=== PATIENT | female | born 1975 | race Caucasian/White ===

== ENCOUNTER → 2016-11-26 | Outpatient (CLI) | payer OTHER ==
[~2016-11-26] MED LIST: PANT20 PO; VORT10TA PO
[2016-11-26 09:07] LABS: AUTOMATED NEUTROPHIL # 2.4 TH/MM3 (1.8-7.7); BASOPHIL # 0.1 TH/MM3 (0-0.2); BASOPHIL % 2.1 % (0.0-2.0); EOSINOPHIL # 0.1 TH/MM3 (0-0.4); EOSINOPHIL % 2.3 % (0.0-4.0); HEMO FLAGS DIFF FINAL; LYMPH % 36.1 % (9.0-44.0); LYMPHOCYTE # 1.7 TH/MM3 (1.0-4.8); MEAN CELL VOLUME 84.1 FL (80.0-100.0); MEAN CORPUSCULAR HEMOGLOBIN 27.2 PG (27.0-34.0); MEAN CORPUSCULAR HGB CONC 32.4 % (32.0-36.0); NEUT % 52.5 % (16.0-70.0); PLATELET COUNT 280 TH/MM3 (150-450); RED BLOOD COUNT 4.16 MIL/MM3 (4.00-5.30); WHITE BLOOD COUNT 4.6 TH/MM3 (4.0-11.0)
[2016-11-26 10:09] LABS: ALKALINE PHOSPHATASE 66 U/L (45-117); ALT (GPT) 33 U/L (10-53); ANION GAP 6 MEQ/L (5-15); AST (GOT) 16 U/L (15-37); BLOOD UREA NITROGEN 12 MG/DL (7-18); CHLORIDE 105 MEQ/L (98-107); FERRITIN 4 NG/ML (8-252); FREE T3 2.07 PG/ML (2.18-3.98); FREE T4 0.91 NG/DL (0.76-1.46); GLOMERULAR FILTRATION RATE 105 ML/MIN (>89); GLUCOSE,FASTING 86 MG/DL (74-99); HDL CHOLESTEROL 71.7 MG/DL (40.0-60.0); LDL CHOLESTEROL 68 MG/DL (0-99); MAGNESIUM 2.1 MG/DL (1.5-2.5); POTASSIUM 4.3 MEQ/L (3.5-5.1); SODIUM (NA) 141 MEQ/L (136-145); TOTAL BILIRUBIN ADULT 0.3 MG/DL (0.2-1.0); TRANSFERRIN IRON PROFILE 249 MG/DL (200-360)
== END ==
LOC: CLAB 08:40
PROVIDERS: ATTEND Surgery
DX: Z98.84 Bariatric surgery status (principal)
CPT/HCPCS: 36415; 80053; 80061; 82306; 82607; 82728; 82746; 83540; 83550; 83735; 83970; 84100; 84439; 84443; 84481; 84590; 85025

== ENCOUNTER → 2016-12-10 | Outpatient (CLI) | payer OTHER | LOC: PLAB 10:58 | PROVIDERS: ATTEND Family Medicine | DX: Z01.411 Encounter for gynecological examination (general) (routine) with abnormal findings (principal) ==

== ENCOUNTER → 2016-12-22 | Outpatient (CLI) | payer OTHER | LOC: PLAB 14:23 | PROVIDERS: ATTEND Obstetrics & Gynecology | DX: Z32.01 Encounter for pregnancy test, result positive (principal) | CPT/HCPCS: 84144; 84703 ==

== ENCOUNTER → 2016-12-30 | Outpatient (CLI) | payer OTHER ==
[2016-12-30 10:19] LABS: BETA HCG QUANT 27779 MIU/ML (0-5)
== END ==
LOC: PLAB 06:59
PROVIDERS: ATTEND Obstetrics & Gynecology
DX: Z32.01 Encounter for pregnancy test, result positive (principal)
CPT/HCPCS: 84702

== ENCOUNTER → 2017-01-19 | Outpatient (CLI) | payer OTHER ==
[2017-01-19 09:31] LABS: AUTOMATED NEUTROPHIL # 5.4 TH/MM3 (1.8-7.7); BASOPHIL # 0.1 TH/MM3 (0-0.2); BASOPHIL % 0.9 % (0.0-2.0); EOSINOPHIL # 0.1 TH/MM3 (0-0.4); HEMO FLAGS DIFF FINAL; LYMPH % 23.8 % (9.0-44.0); LYMPHOCYTE # 1.8 TH/MM3 (1.0-4.8); MEAN CORPUSCULAR HEMOGLOBIN 27.6 PG (27.0-34.0); MEAN CORPUSCULAR HGB CONC 32.5 % (32.0-36.0); MONO % 4.3 % (0.0-8.0); PLATELET COUNT 261 TH/MM3 (150-450); RED BLOOD COUNT 3.88 MIL/MM3 (4.00-5.30); RED CELL DISTRIBUTION WIDTH 15.7 % (11.6-17.2); WHITE BLOOD COUNT 7.7 TH/MM3 (4.0-11.0)
[2017-01-19 09:49] LABS: RUBELLA IGG ANTIBODY 115.7 IU/mL (10.0-500.0); RUBELLA STATUS IMMUNE (IMMUNE)
[2017-01-19 10:16] LABS: RAPID PLASMA REAGIN SCREEN NON-REACTIVE (NON-REACTVE)
== END ==
LOC: PLAB 06:38
PROVIDERS: ATTEND Obstetrics & Gynecology
DX: Z31.438 Encounter for other genetic testing of female for procreative management (principal); Z32.01 Encounter for pregnancy test, result positive; A49.9 Bacterial infection, unspecified
CPT/HCPCS: 85025; 86592; 86703; 86762; 86850; 86900; 86901; 87086; 87340

== ENCOUNTER → 2017-02-16 | Outpatient (CLI) | payer OTHER | LOC: HPND 12:43 | PROVIDERS: ATTEND Obstetrics & Gynecology | DX: O09.519 Supervision of elderly primigravida, unspecified trimester (principal) | CPT/HCPCS: 36416; 76813 ==

== ENCOUNTER → 2017-03-05 | Outpatient (CLI) | payer OTHER ==
[2017-03-10 11:50] LABS: AFP SERUM 27.2 ng/mL (()); CALCULATED GESTATIONAL AGE 15.4 (())
== END ==
LOC: PLAB 07:05
PROVIDERS: ATTEND Obstetrics & Gynecology
DX: O09.519 Supervision of elderly primigravida, unspecified trimester (principal); Z32.01 Encounter for pregnancy test, result positive
CPT/HCPCS: 82105

== ENCOUNTER → 2017-03-23 | Outpatient (CLI) | payer OTHER | LOC: HPND 12:40 | PROVIDERS: ATTEND Obstetrics & Gynecology | DX: O09.522 Supervision of elderly multigravida, second trimester (principal); Z3A.18 18 weeks gestation of pregnancy | CPT/HCPCS: 76811; 76817 ==

== ENCOUNTER → 2017-04-27 | Outpatient (CLI) | payer OTHER | LOC: HPND 14:21 | PROVIDERS: ATTEND Obstetrics & Gynecology | DX: O09.522 Supervision of elderly multigravida, second trimester (principal) | CPT/HCPCS: 76816; 76817 ==

== ENCOUNTER 2017-05-05 14:11 | Observation (INO) | payer OTHER ==
[2017-05-05] VITALS (33 sets, daily range): BP systolic 95–114; BP diastolic 53–86; PULSE 71–87; RESP 15–16
[2017-05-05] MEDS ORDERED: LACTATED RINGER'S 1000 ML INJ 1,000 ML IV SCH (15:17)
[2017-05-05] MEDS ORDERED: MAGNESIUM SULFATE 40 GM PREMIX 1,000 ML ONE (15:20)
[2017-05-05] MEDS ORDERED: MAGNESIUM SULFATE 4 GM PREMIX 100 ML ONE (15:20)
[2017-05-05] MEDS ORDERED: ONDANSETRON HCL 4 MG/2 ML VIAL IV PRN (15:30)
[2017-05-05] MEDS ORDERED: CALCIUM GLUCONATE 10% 1 GM/10 ML VIAL IV PRN (15:30)
[2017-05-05] MEDS ORDERED: ACETAMINOPHEN 325 MG TAB PO PRN (15:30)
[2017-05-05] MEDS ORDERED: SODIUM CHLORIDE 0.9% FLUSH 10 ML FLUSH IV FLUSH PRN (15:30)
[2017-05-05] MEDS ORDERED: MAGNESIUM SULFATE 4 GM PREMIX 100 ML IV ONE (15:30)
[2017-05-05] MEDS ORDERED: AZITHROMYCIN 250 MG TAB PO ONE (15:30)
[2017-05-05 15:56] LABS: BACTERIA, URINE FEW /hpf; BLOOD, URINE NEG (NEG); COMMENT (UR) CULT NOT INDICATED; CULTURE IF INDICATED CULT NOT INDICATED; GLUCOSE,URINE NEG (NEG); KETONE, URINE NEG (NEG); MUCUS URINE FEW /lpf (OCC); NITRITE,URINE NEG (NEG); PH, URINE 5.5 (5.0-8.5); SQUAMOUS EPITHELIAL CELL URINE 9 /hpf (0-5); URINE COLOR YELLOW (YELLW/STRAW)
[2017-05-05 15:58] LABS: AMPHETAMINE, URINE NEG (NEG); BARBITURATES, URINE NEG (NEG); COCAINE, URINE NEG (NEG)
[2017-05-05] MEDS ORDERED: AMPICILLIN INJ 2,000 MG in SODIUM CHLORIDE 0.9% INJ 100 ML IV SCH (16:00)
[2017-05-05] MEDS ORDERED: BETAMETHASONE SOD PHOS/ACETATE SUSP 30 MG/5 ML VIAL IM SCH (16:00)
[2017-05-05] MEDS ORDERED: MAGNESIUM SULFATE 40 GM PREMIX 1,000 ML IV SCH (16:00)
--- NOTE | 2017-05-05 16:30 | PD ---
HPI Travel History International Travel<30 Days: No Contact w/Intl Traveler<30Days: No Known Affected Area: No History of Present Illness HPI This patient is a 42-year-old 1 para 0 EDC is August 24, 2017 presently at 24 weeks and 2 days she presents the chief complaint of leaking fluid over the past week. Did not notify her OB today she began having discomfort in the left upper quadrant no bleeding the baby is active her course is significant for a history of a bicornuate uterus she is unsure if there is a septum however the baby is in the smaller part which is on the left side No recent sexual intercourse history of BV and yeast she has been treated with Flagyl also a history of anemia History Past Medical History Narrative Medical No known drug allergies history of depression Obstetric History Obstetric History First Past Surgical History Narrative Surgical History of a gastric bypass and arthroscopic knee surgery Family History Narrative Family History Heart disease and diabetes Social History Alcohol Use: No Tobacco Use: No Substance Abuse: No Allergies-Medications (Allergen,Severity, Reaction): Coded Allergies: No Known Allergies (Unverified , 04/12/16) Home Meds Active Scripts Pantoprazole Sodium (Protonix)20 Mg Tab20 Mg PO DAILY 14 Days Prov:Racquel Villalba MD 04/12/16 Reported Medications Vortioxetine HBr (Brintellix)10 Mg Tab1 Tab PO DAILY 11/06/14 Review of Systems Genitourinary: Other (leaking fluid over the past week) Musculoskeletal: Other (denies any cramping or abdominal pain other than the left upper quadrant) Physical Exam Vital Signs Date Time Temp Pulse Resp B/P Pulse Ox O2 Delivery O2 Flow Rate FiO2 05/05/17 15:50 15 05/05/17 15:50 74 05/05/17 15:50 77 102/67 05/05/17 15:45 78 05/05/17 15:45 77 103/74 05/05/17 15:40 75 05/05/17 15:40 80 107/67 05/05/17 15:35 74 05/05/17 15:35 72 110/86 05/05/17 15:34 71 103/68 05/05/17 15:01 75 104/64 Narrative GENERAL: Well-nourished, well-developed patient. Alert oriented 3 and cooperative in no acute distress SKIN: Warm and dry. HEAD: Normocephalic and atraumatic. EYES: No scleral icterus. No injection or drainage. Conjunctiva are pink sclerae are clear ENT: No nasal drainage noted. Mucous membranes pink. Airway patent. NECK: Supple, trachea midline. No JVD. No adenopathy no thyroid enlargement CARDIOVASCULAR: Regular rate and rhythm without murmurs, gallops, or rubs. No tachycardia with pulse rate is 75 RESPIRATORY: Breath sounds equal bilaterally. No accessory muscle use. ABDOMEN/GI: Abdomen is gravid consistent with 24 weeks soft nontender no epigastric or right upper quadrant tenderness no rebound tenderness Gravid to [-] weeks size 24 Fundal Height: [-] GENITOURINARY: Speculum exam demonstrates gross clear fluid in the vaginal vault amnisure is positive bimanual exam is deferred however on ultrasound the cervical length is measuring 2.5-2.7 cm and there is no funneling at the internal os External Genitalia: intact and normal in appearance BUS glands: [-] Cervix: [-] Dilatation: [-] Effacement: [-] Station: [-] Presentation: [-] Membranes: ruptured] Uterine Contractions: [-]0 FHT's: Category: [-] 1 Baseline: [-]140 Reactive: [-]+ Variability: [-] + Decels: [-] 0 EXTREMITIES: No cyanosis or edema. 2+ reflexes BACK: Nontender without obvious deformity. No CVA tenderness. NEUROLOGICAL: Awake and alert. Motor and sensory grossly within normal limits. Five out of 5 muscle strength in all muscle groups. Normal speech. Data Data Vital Signs Reviewed: Yes (blood pressure 104/64 pulse is 75 temperatures 98.5) Orders Vital Signs (Adult) .ON ADMISSION (05/05/17 15:10) ^ Labor Status (05/05/17 15:10) Pamg-1 Test .ONCE (05/05/17 15:10) Us Ob Limited (05/05/17 ) Place In Observation (05/05/17 ) Code Status (05/05/17 15:17) Vital Signs (Adult) Q4H (05/05/17 15:17) Activity Bed Rest (05/05/17 15:17) Intake + Output JONO.QSHIFT (05/05/17 15:17) Heart CONTINUOUS (05/05/17 15:17) Urinary Catheter Management JONO.Q8H (05/05/17 15:17) Diet Npo (05/05/17 Dinner) Lactated Ringer's 1000 Ml Inj (Lr 1000 M (05/05/17 15:17) Sodium Chloride 0.9% Flush (Ns Flush) (05/05/17 15:30) Sodium Chloride 0.9% Flush (Ns Flush) (05/05/17 21:00) Betamethasone Inj (Celestone Soluspan In (05/05/17 16:00) Calcium Gluconate Inj (Calcium Gluconate (05/05/17 15:30) Acetaminophen (Tylenol) (05/05/17 15:30) Ondansetron Inj (Zofran Inj) (05/05/17 15:30) Urinalysis - C+S If Indicated (05/05/17 15:17) Cbc No Diff, Includes Plts (05/05/17 15:17) Comprehensive Metabolic Panel (05/05/17 15:17) Ob/Psych Drug Screen, Urine (05/05/17 15:17) Magnesium Sulfate 40 Gm Premix (Magnesiu (05/05/17 16:00) Magnesium Sulfate 4 Gm Premix (Magnesium (05/05/17 15:30) Ampicillin Inj (Ampicillin Inj) (05/05/17 16:00) Magnesium Sulfate 4 Gm Premix (Magnesium (05/05/17 15:20) Magnesium Sulfate 40 Gm Premix (Magnesiu (05/05/17 15:20) Ur Bath Salts (05/05/17 14:55) Ur Heroin (05/05/17 14:55) Ur K2 Spice (05/05/17 14:55) Ur Ecstasy (05/05/17 14:55) Phencyclidine Urine (Pcp) (05/05/17 14:55) Azithromycin (Zithromax) (05/05/17 15:30) Labs Laboratory Tests Test 05/05/17 14:55 Urine Color YELLOW Urine Turbidity HAZY Urine pH 5.5 Urine Specific [place] 1.021 Urine Protein 30 Urine Glucose (UA) NEG Urine Ketones NEG Urine Occult Blood NEG Urine Nitrite NEG Urine Bilirubin NEG Urine Urobilinogen LESS THAN 2.0 Urine Leukocyte Esterase TRACE Urine RBC 1 Urine WBC 6 Urine Squamous Epithelial 9 Cells Urine Amorphous Sediment RARE Urine Bacteria FEW Urine Mucus FEW Microscopic Urinalysis Comment CULT NOT INDICATED Urine Opiates Screen NEG Urine Barbiturates Screen NEG Urine Amphetamines Screen NEG Urine Benzodiazepines Screen NEG Urine Cocaine Screen NEG Urine Cannabinoids Screen NEG MDM Medical Record Reviewed: No Interpretation(s) 42-year-old at 24 weeks and 2 days Advanced maternal age premature rupture of membranes Plan Plan; Magnesium sulfate for gram load and 2 g per hour Betamethasone 12 mg IM 2 doses every 24 hours Antibiotic coverage with ampicillin and azithromycin GC Chlamydia group B strep cultures done CBC CMP urinalysis urine drug screen Dr. Montalvo's her attending and has been notified and is presently on labor and delivery We'll plan to transfer the patient to [facility] for tertiary care high risk care Diagnosis Diagnosis: Primary Impression: 24 weeks gestation of Additional Impressions: Premature rupture of membranes (PROM) following amniocentesis resealed during in second trimester Advanced maternal age, 1st Qualified Code: O09.512 - Advanced maternal age, 1st , second trimester Disposition: 70 TRANSFER TO OTHER FACILITY Condition: Stable Mary Montes MD May 05, 2017 16:30
[2017-05-05 17:01] LABS: HEMATOCRIT 27.8 % (35.0-46.0); MEAN CORPUSCULAR HEMOGLOBIN 27.7 PG (27.0-34.0); MEAN CORPUSCULAR HGB CONC 32.6 % (32.0-36.0); PLATELET COUNT 270 TH/MM3 (150-450); RED BLOOD COUNT 3.28 MIL/MM3 (4.00-5.30); RED CELL DISTRIBUTION WIDTH 14.5 % (11.6-17.2); REVIEW FLAG FINAL; WHITE BLOOD COUNT 11.8 TH/MM3 (4.0-11.0)
[2017-05-05 17:21] LABS: ANION GAP 8 MEQ/L (5-15); AST (GOT) 11 U/L (15-37); BICARBONATE 24.8 MEQ/L (21.0-32.0); BLOOD UREA NITROGEN 5 MG/DL (7-18); CHLORIDE 106 MEQ/L (98-107); GLOMERULAR FILTRATION RATE 202 ML/MIN (>89); POTASSIUM 3.5 MEQ/L (3.5-5.1); SODIUM (NA) 139 MEQ/L (136-145)
[2017-05-05 17:24] LABS: ALKALINE PHOSPHATASE 56 U/L (45-117); ALT (GPT) 16 U/L (10-53); TOTAL BILIRUBIN ADULT 0.2 MG/DL (0.2-1.0)
--- NOTE | 2017-05-05 17:36 | HHI.HP ---
HPI Travel History International Travel<30 Days: No Contact w/Intl Traveler<30Days: No History of Present Illness HPI This patient is a 42-year-old 1 para 0 EDC is August 24, 2017 by first trimester u/s, pt is presently at 24 weeks and 2 days she presents complaining of leaking fluid over the past week. She noted increased leaking today and also developed pain in the left upper quadrant. She denies regular contractions or bleeding. +FM, complicated by bicornuate uterus vs uterine septum. is on left side, AMA, hx of HSV. Pt denies fever, chills, trauma, nausea or vomiting and trauma. Para: 0 : 1 History Past Medical History Narrative Medical IBS Depression Obstetric History Obstetric History G1 Past Surgical History Narrative Surgical left breast lumpectomy cystoscopy X 2 arthroscopy X 2 gastric bypass 11/2014 Family History Narrative Family History MGM colon CA Aunt breast and ovarian CA Social History Narrative Social History , works as RN at [employer] Alcohol Use: No Tobacco Use: No Substance Abuse: No Allergies-Medications (Allergen,Severity, Reaction): Coded Allergies: No Known Allergies (Unverified , 04/12/16) Home Meds Active Scripts Pantoprazole Sodium (Protonix)20 Mg Tab20 Mg PO DAILY 14 Days Prov:Racquel Villalba MD 04/12/16 Reported Medications Vortioxetine HBr (Brintellix)10 Mg Tab1 Tab PO DAILY 11/06/14 Narrative Medication PNV, valtrex, ASA Review of Systems Except as stated in HPI: all other systems reviewed are Neg Physical Exam Vital Signs Date Time Temp Pulse Resp B/P Pulse Ox O2 Delivery O2 Flow Rate FiO2 05/05/17 17:00 15 05/05/17 16:55 74 05/05/17 16:50 76 05/05/17 16:45 79 05/05/17 16:40 73 05/05/17 16:35 74 05/05/17 16:30 76 05/05/17 16:25 72 05/05/17 16:20 71 05/05/17 16:15 77 05/05/17 16:10 75 05/05/17 16:05 75 05/05/17 16:01 77 95/53 05/05/17 16:00 77 6/28/17 15:55 83 05/05/17 15:50 15 05/05/17 15:50 74 05/05/17 15:50 77 102/67 05/05/17 15:45 78 05/05/17 15:45 77 103/74 05/05/17 15:40 75 05/05/17 15:40 80 107/67 05/05/17 15:35 74 05/05/17 15:35 72 110/86 05/05/17 15:34 71 103/68 05/05/17 15:01 75 104/64 Narrative GENERAL: Well-nourished, well-developed patient. SKIN: Warm and dry. HEAD: Normocephalic and atraumatic. NECK: Supple, trachea midline. No JVD CARDIOVASCULAR: Regular rate and rhythm without murmurs, gallops, or rubs. RESPIRATORY: Breath sounds equal bilaterally. No accessory muscle use. ABDOMEN/GI: Abdomen soft, non-tender, bowel sounds present, no rebound, no guarding Gravid to [24] weeks size GENITOURINARY: External Genitalia: intact and normal in appearance Cervix: [cl/soft/ant] Presentation: breech by u/s Membranes: [ruptured grossly and amnisure +] Uterine Contractions: [5-10 min] FHT's: Category: [-] 1 Baseline: [-] 140s Reactive: [-] Variability: [-] mod Decels: [-] none EXTREMITIES: No cyanosis or edema. BACK: Nontender without obvious deformity. No CVA tenderness. NEUROLOGICAL: Awake and alert. Motor and sensory grossly within normal limits. Five out of 5 muscle strength in all muscle groups. Normal speech. Data Data Vital Signs Reviewed: Yes Orders Vital Signs (Adult) .ON ADMISSION (05/05/17 15:10) ^ Labor Status (05/05/17 15:10) Pamg-1 Test .ONCE (05/05/17 15:10) Us Ob Limited (05/05/17 ) Place In Observation (05/05/17 ) Code Status (05/05/17 15:17) Vital Signs (Adult) Q4H (05/05/17 15:17) Activity Bed Rest (05/05/17 15:17) Intake + Output JONO.QSHIFT (05/05/17 15:17) Heart CONTINUOUS (05/05/17 15:17) Urinary Catheter Management JONO.Q8H (05/05/17 15:17) Diet Npo (05/05/17 Dinner) Lactated Ringer's 1000 Ml Inj (Lr 1000 M (05/05/17 15:17) Sodium Chloride 0.9% Flush (Ns Flush) (05/05/17 15:30) Sodium Chloride 0.9% Flush (Ns Flush) (05/05/17 21:00) Betamethasone Inj (Celestone Soluspan In (05/05/17 16:00) Calcium Gluconate Inj (Calcium Gluconate (05/05/17 15:30) Acetaminophen (Tylenol) (05/05/17 15:30) Ondansetron Inj (Zofran Inj) (05/05/17 15:30) Urinalysis - C+S If Indicated (05/05/17 15:17) Cbc No Diff, Includes Plts (05/05/17 15:17) Comprehensive Metabolic Panel (05/05/17 15:17) Ob/Psych Drug Screen, Urine (05/05/17 15:17) Magnesium Sulfate 40 Gm Premix (Magnesiu (05/05/17 16:00) Magnesium Sulfate 4 Gm Premix (Magnesium (05/05/17 15:30) Ampicillin Inj (Ampicillin Inj) (05/05/17 16:00) Magnesium Sulfate 4 Gm Premix (Magnesium (05/05/17 15:20) Magnesium Sulfate 40 Gm Premix (Magnesiu (05/05/17 15:20) Ur Bath Salts (05/05/17 14:55) Ur Heroin (05/05/17 14:55) Ur K2 Spice (05/05/17 14:55) Ur Ecstasy (05/05/17 14:55) Phencyclidine Urine (Pcp) (05/05/17 14:55) Azithromycin (Zithromax) (05/05/17 15:30) Labs Laboratory Tests Test 05/05/17 05/05/17 14:55 15:35 Urine Color YELLOW Urine Turbidity HAZY Urine pH 5.5 Urine Specific [place] 1.021 Urine Protein 30 Urine Glucose (UA) NEG Urine Ketones NEG Urine Occult Blood NEG Urine Nitrite NEG Urine Bilirubin NEG Urine Urobilinogen LESS THAN 2.0 Urine Leukocyte Esterase TRACE Urine RBC 1 Urine WBC 6 Urine Squamous Epithelial 9 Cells Urine Amorphous Sediment RARE Urine Bacteria FEW Urine Mucus FEW Microscopic Urinalysis Comment CULT NOT INDICATED Urine Opiates Screen NEG Urine Barbiturates Screen NEG Urine Amphetamines Screen NEG Urine Benzodiazepines Screen NEG Urine Cocaine Screen NEG Urine Cannabinoids Screen NEG White Blood Count 11.8 Red Blood Count 3.28 Hemoglobin 9.1 Hematocrit 27.8 Mean Corpuscular Volume 85.0 Mean Corpuscular Hemoglobin 27.7 Mean Corpuscular Hemoglobin 32.6 Concent Red Cell Distribution Width 14.5 Platelet Count 270 Mean Platelet Volume 10.4 Assessment/Plan Assessment and Plan 42-year-old at 24 weeks and 2 days Advanced maternal age premature rupture of membranes Hx HSV Bicornuate vs Uterine Septum Breech presentation today, EFW 634 g on 04/27 Plan: Magnesium sulfate cont at 2 g per hour Betamethasone 12 mg IM 2 doses every 24 hours Antibiotic coverage with ampicillin and azithromycin GC Chlamydia group B strep cultures done Breech by u/s Reviewed case with Dr. Peña, who accepts transfer to [facility] for tertiary care Juan Dale MD May 05, 2017 17:36
[2017-05-05] MEDS ORDERED: SODIUM CHLORIDE 0.9% FLUSH 10 ML FLUSH IV FLUSH SCH (21:00)
[2017-05-10 09:02] LABS: BATH SALTS (MDPV) UR NEG (NEG); ECSTASY (MDMA) UR NEG (NEG); GABAPENTIN UR NEG (NEG); HEROIN (6-ACETYLMORPHINE) UR NEG (NEG); HYDROMORPHONE U NEG (NEG); K2 SPICE UR NEG (NEG); OBMETHADONE UR NEG (NEG); OXYCODONE (PERCODAN) NEG (NEG); PHENCYCLIDINE URINE NEG (NEG)
== END 2017-05-05 19:03 | disposition short-term general hospital (02) ==
LOC: HOBED 14:11 → H2OV 15:19 → HOBED 19:03
PROVIDERS: ADMIT Obstetrics & Gynecology; ATTEND Obstetrics & Gynecology
DX: O42.912 Preterm premature rupture of membranes, unspecified as to length of time between rupture and onset of labor, second trimester (principal); O99.844 Bariatric surgery status complicating childbirth; Z3A.24 24 weeks gestation of pregnancy; O09.512 Supervision of elderly primigravida, second trimester; O34.02 Maternal care for unspecified congenital malformation of uterus, second trimester; Q51.3 Bicornate uterus; K58.9 Irritable bowel syndrome, unspecified; F32.9 Major depressive disorder, single episode, unspecified; Z79.899 Other long term (current) drug therapy
CPT/HCPCS: 76815; 80053; 80307; 81001; 84112; 85027; 99285; G0378; G0481; J0290; J0702; J3475; J7120

== ENCOUNTER → 2017-05-09 | Emergency (ER) | payer OTHER ==
[~2017-05-09] MED LIST changes: +AMOXICILLIN/CLAVULANATE K 500 MG TAB PO SCH; +AZITHROMYCIN 250 MG TAB PO SCH; +NYSTATIN/TRIAMCINOLONE OINT 15 GM TUBE TOPICAL SCH
--- NOTE | 2017-05-09 13:48 | HHI.HP ---
HPI Travel History International Travel<30 Days: No Contact w/Intl Traveler<30Days: No Known Affected Area: No History of Present Illness HPI 42 yo presents at 24 5/7 wks c/o persistent LOF since she was discharged on 05/06 from [facility]. She denies fever, chills and abdominal pain. No contractions or vaginal bleeding. Pt was originally diagnosed at [facility] and transferred to [facility] on 05/05. Pt also c/o vaginal irritation externally , denies vaginal discharge, odor or lesions. History Past Medical History Narrative Medical IBS depression HSV bicornuate uterus vs uterine septum Obstetric History Obstetric History Past Surgical History Narrative Surgical left breast lumpectomy cystoscopy X 2 arthroscopy X 2 gastric bypass Social History Narrative Social History MGM colon ca aunt breast and ovarian ca Alcohol Use: No Tobacco Use: No Substance Abuse: No Allergies-Medications (Allergen,Severity, Reaction): Coded Allergies: No Known Allergies (Unverified , 05/09/17) Home Meds Active Scripts Pantoprazole Sodium (Protonix)20 Mg Tab20 Mg PO DAILY 14 Days Prov:Racquel Villalba MD 04/12/16 Reported Medications Vortioxetine HBr (Brintellix)10 Mg Tab1 Tab PO DAILY 11/06/14 Narrative Medication PNV, valtrex, ASA, zoloft Review of Systems Except as stated in HPI: all other systems reviewed are Neg Physical Exam Narrative GENERAL: Well-nourished, well-developed patient. SKIN: Warm and dry. HEAD: Normocephalic and atraumatic. EYES: No scleral icterus. No injection or drainage. ENT: No nasal drainage noted. Mucous membranes pink. Airway patent. NECK: Supple, trachea midline. No JVD. CARDIOVASCULAR: Regular rate and rhythm without murmurs, gallops, or rubs. RESPIRATORY: Breath sounds equal bilaterally. No accessory muscle use. BREASTS: Bilateral exam showed no masses , no retractions, no nipple discharge. ABDOMEN/GI: Abdomen soft, non-tender, bowel sounds present, no rebound, no guarding Gravid to 24 weeks size GENITOURINARY: External Genitalia: intact and normal in appearance Cervix: visually closed, SSE: +pooling, nitrazine and ferning Presentation: breech by u/s Membranes: [ruptured clear] Uterine Contractions: quiet FHT's: Category: [-] 1 Baseline: [-] 140s Reactive: [-] Variability: [-] Decels: [-] EXTREMITIES: No cyanosis or edema. BACK: Nontender without obvious deformity. No CVA tenderness. NEUROLOGICAL: Awake and alert. Motor and sensory grossly within normal limits. Five out of 5 muscle strength in all muscle groups. Normal speech. Data Data Orders Fentanyl Inj (Fentanyl Inj) (05/09/17 11:13) Us Ob Limited (05/09/17 ) Fentanyl Inj (Fentanyl Inj) (05/09/17 13:00) Assessment/Plan Problem List: (1) 24 weeks gestation of (2) Premature rupture of membranes (PROM) following amniocentesis resealed during in second trimester Plan: will continue Azithromycin and Augmentin breech by u/s, cervical length 2.7 cm will start mycolog for vaginitis reviewed case with dr. langley who agrees to accept pt to back to [facility] for further management. (3) Advanced maternal age, 1st Juan Dale MD May 09, 2017 13:48
--- NOTE | 2017-05-09 14:36 | HHI.PR ---
Addendum to Inpatient Note Addendum Reason: Additional Documentation Additional Information Consult for Rina Goetz on 05/09/17 Maternal Hx: 42 y/o female at 24 5/7 weeks gestation with diagnosis of premature, prolonged rupture of membranes at 24 5/7 weeks gestation. Mother admitted to [facility] on 05/09/17 secondary to c/o leaking of fluids from vaginal and yeast infection. Most recent Ultrasound today on 05/09/17confirms intrauterine . EDC of 08/24/17 Estimated weight is 634 grams. Maternal risk factors/complications: advanced maternal age, bicornuate uterus/ uterine septum and breech presentation Maternal medical history: ASHLEIGH, s/p gastric bypass surgery, depression, bacterial vaginosis, yeast infection, h/o HSV - no active lesions Maternal Labs: Blood type B+, Rubella immune, RPR NR, GC unknown, Chlamydia unknown, Hepatitis B negative, HIV negative, GBS unknown, Other h/o HSV Maternal Medications: PNV, Antibiotics (Augmentin, Zithromax, Flagyl, Penicillin G, Valcyclovir), protonix, brintellix. Betamethasone (05/05/17 and 05/06/17) Social: Marital status: Resides [facility]/ [place] Family Hx: Mother reports no genetic or inherited conditions. Substance Abuse: Denies Discussion: Nurse Practitioner met with mother regarding threatened delivery at 24 5 /7 weeks gestation secondary to premature and prolonged rupture of membranes. This consultation included generalized care of the baby in the NICU, common problems, complications and survival and/or disability potential if delivered at this time. The discussion reviewed the expectations with delivery of an under these circumstances including delivery room atmosphere, resuscitation and stabilization. Also included in this review is the admission process to the NICU, including possible procedures such as intubation and placement of umbilical catheter(s). Additionally, there was a discussion of the disease processes that may affect an infant of this gestation, including but not limited to respiratory distress, infection and nutritional concerns. Discussion detailed various forms of respiratory support for immature lungs including use of surfactant and placement of umbilical catheters and/or PICC lines. Discussion focused on CPAP and/or ventilator support as needed for an of this gestation. There was a review of nutritional support challenges including IV and gavage feeding. There was discussion regarding possible early feeding, therefore, breast feeding and early breast milk pumping was strongly encouraged. There was a review of the potential for intraventricular hemorrhage (IVH), sonogram testing and subsequent risk of neurodevelopmental delay. It was explained that there is an increased potential for neurodevelopmental delay secondary to prematurity itself, even if the does not have IVH. Maternal grandparents arrived at the end of the conversation and FOB was on phone call at the end of our conversation. Attempted to give further information regarding complications of prematurity such as ROP, jaundice and infection, however, Mother stated that she did not want to hear anymore. Mother was being prepared for transfer to [facility] for further management of . Greater than 50% of the consultation time was spent with the patient. This consultation was discusssed with the attending [employer] Trimmer, Dr. Wayne Davidson, PAYABLE MANAGER-[employer]RAIN 05/09/17 Nurse practitioner Date Val Davidson May 09, 2017 14:36
== END | disposition home or self-care (01) ==
LOC: HOBED 10:00
DX: O42.912 Preterm premature rupture of membranes, unspecified as to length of time between rupture and onset of labor, second trimester (principal); O09.512 Supervision of elderly primigravida, second trimester; Z3A.24 24 weeks gestation of pregnancy
CPT/HCPCS: 76815; 87210; 99285; J3010

== ENCOUNTER → 2018-03-23 | Outpatient (CLI) | payer OTHER ==
[~2018-03-23] MED LIST changes: -AMOXICILLIN/CLAVULANATE K 500 MG TAB PO SCH; -AZITHROMYCIN 250 MG TAB PO SCH; -NYSTATIN/TRIAMCINOLONE OINT 15 GM TUBE TOPICAL SCH
[2018-03-23 13:26] LABS: AUTOMATED NEUTROPHIL # 4.2 TH/MM3 (1.8-7.7); BASOPHIL # 0.1 TH/MM3 (0-0.2); BASOPHIL % 1.1 % (0.0-2.0); EOSINOPHIL # 0.1 TH/MM3 (0-0.4); EOSINOPHIL % 1.6 % (0.0-4.0); HEMOGLOBIN 12.8 GM/DL (11.6-15.3); LYMPH % 28.7 % (9.0-44.0); LYMPHOCYTE # 1.9 TH/MM3 (1.0-4.8); MEAN CELL VOLUME 95.7 FL (80.0-100.0); MEAN CORPUSCULAR HEMOGLOBIN 32.1 PG (27.0-34.0); MEAN CORPUSCULAR HGB CONC 33.6 % (32.0-36.0); MEAN PLATELET VOLUME 10.7 FL (7.0-11.0); MONO % 4.9 % (0.0-8.0); MONOCYTE # 0.3 TH/MM3 (0-0.9); NEUT % 63.7 % (16.0-70.0); PLATELET COUNT 281 TH/MM3 (150-450); RED BLOOD COUNT 3.97 MIL/MM3 (4.00-5.30); RED CELL DISTRIBUTION WIDTH 13.6 % (11.6-17.2); WHITE BLOOD COUNT 6.7 TH/MM3 (4.0-11.0)
[2018-03-23 14:23] LABS: ALBUMIN 3.9 GM/DL (3.4-5.0); AST (GOT) 21 U/L (15-37); BICARBONATE 24.2 MEQ/L (21.0-32.0); BLOOD UREA NITROGEN 9 MG/DL (7-18); CALCIUM 8.5 MG/DL (8.5-10.1); CHLORIDE 103 MEQ/L (98-107); GLOMERULAR FILTRATION RATE 133 ML/MIN (>89); GLUCOSE,RANDOM 69 MG/DL (74-106); SODIUM (NA) 140 MEQ/L (136-145)
[2018-03-23 14:34] LABS: ALKALINE PHOSPHATASE 74 U/L (45-117); ALT (GPT) 30 U/L (10-53); TOTAL BILIRUBIN ADULT 0.5 MG/DL (0.2-1.0); TOTAL PROTEIN 8.2 GM/DL (6.4-8.2)
== END ==
LOC: PLAB 11:12
PROVIDERS: ATTEND Family Medicine
DX: R63.5 Abnormal weight gain (principal)
CPT/HCPCS: 36415; 80053; 84439; 84443; 85025